=== PATIENT | female | born 1995 | race Caucasian/White ===

== ENCOUNTER 2019-05-24 16:10 | Emergency (ER) | payer SELFPAY ==
[~2019-05-24] VITALS: Ht 154.9 cm; Wt 63.6 kg
[2019-05-24] MEDS: CYCLOBENZAPRINE HCL 10 MG TABLET PO ONE (17:02)
[2019-05-24] MEDS: IBUPROFEN 600 MG TABLET PO ONE (17:02)
[2019-05-24 18:17] VITALS: BP 124/67
== END 2019-05-24 18:17 | disposition home or self-care (01) ==
LOC: EMS 16:12
DX: S50.311A Abrasion of right elbow, initial encounter (principal); S00.01XA Abrasion of scalp, initial encounter; F12.90 Cannabis use, unspecified, uncomplicated; Y04.0XXA Assault by unarmed brawl or fight, initial encounter; Y93.89 Activity, other specified; Y92.89 Other specified places as the place of occurrence of the external cause; Y99.8 Other external cause status